=== PATIENT | male | born 1990 | race Two or more races ===

== ENCOUNTER 2017-08-09 13:28 | Emergency (ER) | payer SELFPAY ==
[2017-08-09 14:13] LABS: BILIRUBIN,URINE NEGATIVE (NEG); CLARITY,URINE CLOUDY; COLOR,URINE YELLOW; GLUCOSE,URINE NEGATIVE (NEG); NITRITE,URINE NEGATIVE (NEG); PH,URINE 6.5; PROTEIN,URINE NEGATIVE (NEG-TRACE); UROBILINOGEN,URINE 0.2 mg/dL (0.2 mg/dL)
[2017-08-09] MEDS: DOXYCYCLINE HYCLATE 100 MG TABLET PO (14:19)
[2017-08-09] MEDS: metroNIDAZOLE 500 MG TABLET PO (14:19)
[2017-08-09] MEDS: cefTRIAXone IM 250 MG VIAL IM (14:19)
[2017-08-09] MEDS: AZITHROMYCIN 250 MG TABLET. PO (14:19)
[2017-08-09 14:41] LABS: BACTERIA,URINE 0 /HPF (0-FEW); WBC,URINE >40 /HPF (0-4)
== END 2017-08-09 14:49 | disposition home or self-care (01) ==
LOC: ER 14:49
DX: Z20.2 Contact with and (suspected) exposure to infections with a predominantly sexual mode of transmission (principal)
CPT/HCPCS: 81001; 87086; 87491; 87591; 96372; 99284; J0696; Q0144